=== PATIENT | female | born 1945 | race African-American/Black ===

== ENCOUNTER 2016-08-16 02:47 | Emergency (ER) | payer BC ==
[~2016-08-16] VITALS: Ht 160 cm; Wt 61.0 kg
[~2016-08-16 02:47] MED LIST: NAPR220T95 PO; RANI150 PO
[2016-08-16 02:48] VITALS: BP 202/82; PULSE 72; RESP 16; TEMP 97.8; O2SAT 100
[2016-08-16 03:10] VITALS: BP 206/82; PULSE 74; RESP 14; O2SAT 100
[2016-08-16] MEDS ORDERED: SODIUM CHLORIDE 0.9% FLUSH 5 ML FLUSH IVF PRN (03:15)
[2016-08-16] MEDS ORDERED: ALUMINUM/MAGNESIUM/SIMETH 30 ML CUP PO ONE (03:15)
[2016-08-16] MEDS ORDERED: LIDOCAINE VISCOUS 2% SOLN 15 ML UDC PO ONE (03:15)
[2016-08-16 03:36] LABS: AUTOMATED NEUTROPHIL # 6.6 TH/MM3 (1.8-7.7); BASOPHIL % 0.5 % (0.0-2.0); EOSINOPHIL % 0.4 % (0.0-4.0); HEMATOCRIT 37.4 % (35.0-46.0); HEMO FLAGS DIFF FINAL; LYMPH % 13.4 % (9.0-44.0); LYMPHOCYTE # 1.1 TH/MM3 (1.0-4.8); MEAN CORPUSCULAR HEMOGLOBIN 29.2 PG (27.0-34.0); MEAN CORPUSCULAR HGB CONC 32.8 % (32.0-36.0); MONO % 4.9 % (0.0-8.0); NEUT % 80.8 % (16.0-70.0); PLATELET COUNT 120 TH/MM3 (150-450); RED CELL DISTRIBUTION WIDTH 13.5 % (11.6-17.2); WHITE BLOOD COUNT 8.2 TH/MM3 (4.0-11.0)
[2016-08-16] MEDS ORDERED: SODIUM CHLOR 0.9% 1000 ML INJ 1,000 ML IV SCH (03:47)
[2016-08-16] MEDS ORDERED: HYDROmorphone HCL PF 1 MG/ML VIAL IVS ONE (04:00)
[2016-08-16 04:06] LABS: ALT (GPT) 18 U/L (10-53); ANION GAP 9 MEQ/L (5-15); AST (GOT) 11 U/L (15-37); BICARBONATE 27.1 MEQ/L (21.0-32.0); BLOOD UREA NITROGEN 18 MG/DL (7-18); CHLORIDE 107 MEQ/L (98-107); GLOMERULAR FILTRATION RATE 72 ML/MIN (>89); POTASSIUM 3.7 MEQ/L (3.5-5.1); SODIUM (NA) 143 MEQ/L (136-145)
[2016-08-16 04:08] LABS: ALKALINE PHOSPHATASE 77 U/L (45-117); TOTAL BILIRUBIN ADULT 0.4 MG/DL (0.2-1.0)
[2016-08-16] MEDS ORDERED: METF500T PO (04:27)
[2016-08-16] MEDS ORDERED: PRAV10TA PO (04:27)
--- NOTE | 2016-08-16 04:38 | PD ---
HPI Chief Complaint: GI Complaint Time Seen by Provider: 03:14 Travel History International Travel<30 days: No Contact w/Intl Traveler<30days: No Traveled to known affect area: No History of Present Illness HPI The patient is 71 years old. She arrives with a few hours of abdominal pain. It started somewhat suddenly. Location is primarily in the right upper quadrant. It is also in the region of the epigastrium. She reports going to [employer] this afternoon and eating quite a bit of fried food. She reports 6 episodes of nonbloody diarrhea. She also reports nausea followed by tenting to drink ti kamille followed by vomiting. Abdominal pain improved after vomiting. In the ER she has persistent constant abdominal pain. It's worse with palpation. No fever. She has a history of GERD. PFSH Past Medical History High Cholesterol: Yes Diabetes: Yes Patient Takes Glucophage: Yes GERD: Yes Immunizations Current: Yes Dilation and Curettage (D&C): Yes Past Surgical History Section: Yes Other Surgery: Yes ("MYELOIDECTOMY") Social History Alcohol Use: No Tobacco Use: No Substance Use: No Allergies-Medications (Allergen,Severity, Reaction): Coded Allergies: No Known Allergies (Unverified , 08/16/16) Reported Meds & Prescriptions Reported Meds & Active Scripts Active Bentyl (Dicyclomine HCl) 10 Mg Cap 10 Mg PO TID Zofran Odt (Ondansetron Odt) 4 Mg Tab 4 Mg SL Q8HR PRN Reported Metformin (Metformin HCl) 500 Mg Tab 500 Mg PO EVERY OTHER DAY With a meal Pravastatin 10 Mg Tab 10 Mg PO EVERY OTHER DAY Review of Systems Except as stated in HPI: all other systems reviewed are Neg Physical Exam Narrative GENERAL: 71-year-old female moderate distress well-nourished well-developed pleasant SKIN: Warm and dry. HEAD: Atraumatic. Normocephalic. EYES: Pupils equal and round. No scleral icterus. No injection or drainage. ENT: No nasal bleeding or discharge. Mucous membranes pink and moist. NECK: Trachea midline. No JVD. CARDIOVASCULAR: Regular rate and rhythm. No murmur appreciated. RESPIRATORY: No accessory muscle use. Clear to auscultation. Breath sounds equal bilaterally. GASTROINTESTINAL: Soft. Epigastric TTP. MUSCULOSKELETAL: No obvious deformities. No clubbing. No cyanosis. No edema. NEUROLOGICAL: Awake and alert. No obvious cranial nerve deficits. Motor grossly within normal limits. Normal speech. PSYCHIATRIC: Appropriate mood and affect; insight and judgment normal. Data Data Last Documented VS Vital Signs Date Time Temp Pulse Resp B/P Pulse Ox O2 Delivery O2 Flow Rate FiO2 08/16/16 05:10 74 20 156/74 98 08/16/16 02:48 97.8 Orders Complete Blood Count With Diff (08/16/16 03:14) Comprehensive Metabolic Panel (08/16/16 03:14) Lipase (08/16/16 03:14) Iv Access Insert/Monitor (08/16/16 03:14) Ecg Monitoring (08/16/16 03:14) Oximetry (08/16/16 03:14) Sodium Chloride 0.9% Flush (Ns Flush) (08/16/16 03:15) Al-Mag Hy-Si 40-40-4 Mg/Ml Liq (Mag-Al P (08/16/16 03:15) Lidocaine 2% Viscous (Xylocaine 2% Visco (08/16/16 03:15) Sodium Chlor 0.9% 1000 Ml Inj (Ns 1000 M (08/16/16 03:47) Hydromorphone Pf Inj (Dilaudid Pf Inj) (08/16/16 04:00) Hydromorphone Pf Inj (Dilaudid Pf Inj) (08/16/16 05:00) Ct Abd/Pel W/O Iv Contrast (08/16/16 03:47) Labs Laboratory Tests Test 08/16/16 03:25 White Blood Count 8.2 TH/MM3 Red Blood Count 4.20 MIL/MM3 Hemoglobin 12.3 GM/DL Hematocrit 37.4 % Mean Corpuscular Volume 89.0 FL Mean Corpuscular Hemoglobin 29.2 PG Mean Corpuscular Hemoglobin 32.8 % Concent Red Cell Distribution Width 13.5 % Platelet Count 120 TH/MM3 Mean Platelet Volume 11.7 FL Neutrophils (%) (Auto) 80.8 % Lymphocytes (%) (Auto) 13.4 % Monocytes (%) (Auto) 4.9 % Eosinophils (%) (Auto) 0.4 % Basophils (%) (Auto) 0.5 % Neutrophils # (Auto) 6.6 TH/MM3 Lymphocytes # (Auto) 1.1 TH/MM3 Monocytes # (Auto) 0.4 TH/MM3 Eosinophils # (Auto) 0.0 TH/MM3 Basophils # (Auto) 0.0 TH/MM3 CBC Comment DIFF FINAL Differential Comment Sodium Level 143 MEQ/L Potassium Level 3.7 MEQ/L Chloride Level 107 MEQ/L Carbon Dioxide Level 27.1 MEQ/L Anion Gap 9 MEQ/L Blood Urea Nitrogen 18 MG/DL Creatinine 0.92 MG/DL Estimat Glomerular Filtration 72 ML/MIN Rate Random Glucose 185 MG/DL Calcium Level 9.3 MG/DL Total Bilirubin 0.4 MG/DL Aspartate Amino Transf 11 U/L (AST/SGOT) Alanine Aminotransferase 18 U/L (ALT/SGPT) Alkaline Phosphatase 77 U/L Total Protein 7.3 GM/DL Albumin 4.0 GM/DL Lipase 157 U/L [facility] Medical Decision Making Medical Screen Exam Complete: Yes Emergency Medical Condition: Yes Medical Record Reviewed: Yes Differential Diagnosis Constipation, Gastritis, Acute Cholecystitis, Biliary Colic, Pancreatitis, BRUCE , Hepatitis, Bowel Obstruction, Cystitis, Mesenteric Ischemia, AAA, Appendicitis , Renal Stone/Hydronephrosis, GERD, perforated viscous Narrative Course CBC & BMP Diagram 08/16/16 03:25 LFTs lipase are normal CT ab/pel: gallstones without ductal dilation; gastric distension; fibroid The patient is resting comfortably and feels better, is alert and in no distress. The patients results and examination findings were discussed. The repeat examination is unremarkable and benign. The history, exam, diagnostic testing, and current condition do not suggest any significant pathology to warrant further testing, continued ED treatment, admission, or surgical evaluation at this point. The vital signs have been stable. The patient does not have uncontrollable pain, intractable vomiting, or other significant symptoms. The patient's condition is stable and appropriate for discharge. The patient will pursue further outpatient evaluation with a primary care physician or other designated or consulting physician as indicated in the discharge instructions. The patient expressed understanding and was agreeable with this plan. Diagnosis Primary Impression: Abdominal pain Qualified Code: R10.13 - Epigastric pain Additional Impressions: Diarrhea Qualified Code: R19.7 - Diarrhea, unspecified type Nausea & vomiting Qualified Code: R11.2 - Nausea and vomiting, intractability of vomiting not specified, unspecified vomiting type Referrals: Primary Care Physician 1 month Additional Instructions: You have a choice when it comes to health care, and we are glad that you chose [facility]. Hopefully, we have met your expectations on today's visit. You are welcome to return to [facility] at any time, as we are committed to meeting the health care needs of our community. Med/Other Pt SpecificInfo: Prescription(s) given Scripts Dicyclomine (Bentyl)10 Mg Cap10 Mg PO TID #10 CAP Ref 0 Prov:Jim Durand MD 08/16/16 Ondansetron Odt (Zofran Odt)4 Mg Tab4 Mg SL Q8HR PRN (Nausea/Vomiting) #10 TAB Ref 0 Prov:Jim Durand MD 08/16/16 Disposition: 01 DISCHARGE HOME Condition: Stable Jim Durand MD Aug 16, 2016 04:38
[2016-08-16] MEDS ORDERED: HYDROmorphone HCL PF 1 MG/ML VIAL IV PUSH ONE (05:00)
[2016-08-16 05:10] VITALS: BP 156/74; PULSE 74; RESP 20; O2SAT 98
--- NOTE | 2016-08-16 05:38 | RADRPT ---
EXAM DATE/TIME: 08/16/2016 05:20 [place] COMPARISON: No previous studies available for comparison. INDICATIONS : Abdominal pain since 11pm last night. ORAL CONTRAST: No oral contrast ingested. RADIATION DOSE: 5.21 CTDIvol (mGy) MEDICAL HISTORY : Gastroesophageal reflux disease. Diabetes mellitus type 2. Hypercholesterolemia. SURGICAL HISTORY : section. ENCOUNTER: Initial ACUITY: 1 day PAIN SCALE: 7/10 LOCATION: abdomen TECHNIQUE: Volumetric scanning of the abdomen and pelvis was performed. Using automated exposure control and ad justment of the mA and/or kV according to patient size, radiation dose was kept as low as reasonably achievable to obtain optimal diagnostic quality images. FINDINGS: Compare July 2015. Lung bases remain clear. 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 Again seen is gallstone in gallbladder. Spleen, adrenals, kidneys and pancreas d emonstrate no acute findings. No bowel obstruction. No free air or free fluid. Stomach is distended. Again seen is a fibroid uterus . CONCLUSION: 1. No significant change compared with July 2015. 2. Gallstones without ductal dilatation. 3. Gastric distention. 4. Fibroid uterus. Suhas Bernardo MD on August 16, 2016 at 5:32 Board Certified Radiologist. This report was verified electronically.
[2016-08-16] MEDS ORDERED: DICY10 PO (06:10)
[2016-08-16] MEDS ORDERED: ZOFR4TAB3 SL (06:10)
[2016-08-16] MEDS ORDERED: ACETAMINOPHEN/HYDROcodone 325 MG/5 MG TAB PO ONE (06:45)
[2016-08-16] MEDS ORDERED: HYDR-3533 PO (06:58)
[2016-08-16] MEDS ORDERED: NORC5TAB PO (12:58)
--- NOTE | 2016-08-16 12:58 | PD ---
Data Data Last Documented VS Vital Signs Date Time Temp Pulse Resp B/P Pulse Ox O2 Delivery O2 Flow Rate FiO2 08/16/16 05:10 74 20 156/74 98 08/16/16 02:48 97.8 Orders Complete Blood Count With Diff (08/16/16 03:14) Comprehensive Metabolic Panel (08/16/16 03:14) Lipase (08/16/16 03:14) Iv Access Insert/Monitor (08/16/16 03:14) Ecg Monitoring (08/16/16 03:14) Oximetry (08/16/16 03:14) Sodium Chloride 0.9% Flush (Ns Flush) (08/16/16 03:15) Al-Mag Hy-Si 40-40-4 Mg/Ml Liq (Mag-Al P (08/16/16 03:15) Lidocaine 2% Viscous (Xylocaine 2% Visco (08/16/16 03:15) Sodium Chlor 0.9% 1000 Ml Inj (Ns 1000 M (08/16/16 03:47) Hydromorphone Pf Inj (Dilaudid Pf Inj) (08/16/16 04:00) Hydromorphone Pf Inj (Dilaudid Pf Inj) (08/16/16 05:00) Ct Abd/Pel W/O Iv Contrast (08/16/16 03:47) Acetamin-Hydrocod 325-5 Mg ([place] 5-325 (08/16/16 06:45) Labs Laboratory Tests Test 08/16/16 03:25 White Blood Count 8.2 TH/MM3 Red Blood Count 4.20 MIL/MM3 Hemoglobin 12.3 GM/DL Hematocrit 37.4 % Mean Corpuscular Volume 89.0 FL Mean Corpuscular Hemoglobin 29.2 PG Mean Corpuscular Hemoglobin 32.8 % Concent Red Cell Distribution Width 13.5 % Platelet Count 120 TH/MM3 Mean Platelet Volume 11.7 FL Neutrophils (%) (Auto) 80.8 % Lymphocytes (%) (Auto) 13.4 % Monocytes (%) (Auto) 4.9 % Eosinophils (%) (Auto) 0.4 % Basophils (%) (Auto) 0.5 % Neutrophils # (Auto) 6.6 TH/MM3 Lymphocytes # (Auto) 1.1 TH/MM3 Monocytes # (Auto) 0.4 TH/MM3 Eosinophils # (Auto) 0.0 TH/MM3 Basophils # (Auto) 0.0 TH/MM3 CBC Comment DIFF FINAL Differential Comment Sodium Level 143 MEQ/L Potassium Level 3.7 MEQ/L Chloride Level 107 MEQ/L Carbon Dioxide Level 27.1 MEQ/L Anion Gap 9 MEQ/L Blood Urea Nitrogen 18 MG/DL Creatinine 0.92 MG/DL Estimat Glomerular Filtration 72 ML/MIN Rate Random Glucose 185 MG/DL Calcium Level 9.3 MG/DL Total Bilirubin 0.4 MG/DL Aspartate Amino Transf 11 U/L (AST/SGOT) Alanine Aminotransferase 18 U/L (ALT/SGPT) Alkaline Phosphatase 77 U/L Total Protein 7.3 GM/DL Albumin 4.0 GM/DL Lipase 157 U/L MDM Supervised Visit with ERICKA: No Narrative Course Patient returned to ED, did not want to be re-evaluated. Had script for [place] "# 7days" on script. Pharmacy would not fill. I have re-issued norco script. Previous was shredded witnessed by Christopher YUNG. Diagnosis Primary Impression: Abdominal pain Qualified Code: R10.13 - Epigastric pain Additional Impressions: Nausea & vomiting Qualified Code: R11.2 - Nausea and vomiting, intractability of vomiting not specified, unspecified vomiting type Diarrhea Qualified Code: R19.7 - Diarrhea, unspecified type Referrals: Primary Care Physician 1 month Patient Instructions: General Instructions, Acute Nausea and Vomiting (ED), Acute Diarrhea (ED) Departure Forms: Tests/Procedures Additional Instruction: You have a choice when it comes to health care, and we are glad that you chose [facility]. Hopefully, we have met your expectations on today's visit. You are welcome to return to [facility] at any time, as we are committed to meeting the health care needs of our community. Scripts Hydrocodone-Acetaminophen ([place])5-325 mg Tab1 Tab PO Q6H PRN (PAIN) #10 TAB Ref 0 Prov:Marlo Pereira MD 08/16/16 Dicyclomine (Bentyl)10 Mg Cap10 Mg PO TID #10 CAP Ref 0 Prov:Jim Durand MD 08/16/16 Ondansetron Odt (Zofran Odt)4 Mg Tab4 Mg SL Q8HR PRN (Nausea/Vomiting) #10 TAB Ref 0 Prov:Jim Durand MD 08/16/16 Disposition: 01 DISCHARGE HOME Condition: Stable Marlo Pereira MD Aug 16, 2016 12:58
== END 2016-08-16 07:56 | disposition home or self-care (01) ==
LOC: NEPC 02:47
DX: R10.11 Right upper quadrant pain (principal); R10.13 Epigastric pain; R19.7 Diarrhea, unspecified; R11.2 Nausea with vomiting, unspecified; E78.00 Pure hypercholesterolemia, unspecified; E11.9 Type 2 diabetes mellitus without complications; K21.9 Gastro-esophageal reflux disease without esophagitis
CPT/HCPCS: 74176; 80053; 83690; 85025; 96374; 96376; 99284; J1170; J7030